=== PATIENT | male | born 1965 | race Caucasian/White ===

== ENCOUNTER 2017-11-21 07:29 | Day surgery (SDC) | payer OTHER ==
[2017-11-21] VITALS (8 sets, daily range): BP systolic 101–107; BP diastolic 61–86
[~2017-11-21] VITALS: Ht 180.3 cm; Wt 95.3 kg
--- NOTE | 2017-11-21 06:56 | Pre-Procedure Note/Attestation ---
Pre-Procedure Note/Attestation Complete Prior to Procedure Planned Procedure: left Procedure Narrative: left shoulder scope, sad, mini tom, rtc repair Indications for Procedure Pre-Operative Diagnosis: left shoulder rtc tear Attestation I attest that I discussed the nature of the procedure; its benefits; risks and complications; and alternatives (and the risks and benefits of such alternatives ), prior to the procedure, with the patient (or the patient's legal pharmaceutical representative). I attest that, if there was a reasonable possibility of needing a blood transfusion, the patient (or the patient's legal pharmaceutical representative) was given the [facility] standardized written summary, pursuant to the Manav Vandemere Blood Safety Act ([place] Health and Safety Code # 1645, as amended). I attest that I re-evaluated the patient just prior to the surgery and that there has been no change in the patient's H&P, except as documented below: none Nathaniel Craft MD Nov 21, 2017 06:56
[~2017-11-21 07:29] MED LIST: ceFAZolin 1gm in D5W 55ml IVP ONE; celeBREX 200mg Cap **SURGERY PATIENTS ONLY ORAL ONE; oxyCONTIN 20mg tab ORAL ONE
--- NOTE | 2017-11-21 08:57 | Anethesia Preoperative Eval ---
Anesthesia Pre-op PMH/ROS General Date of Evaluation: Nov 21, 2017 Anesthesiologist: Korey ASA Score: ASA 3 Mallampati Score Class I : Soft palate, uvula, fauces, pillars visible Class II: Soft palate, uvula, fauces visible Class III: Soft palate, base of uvula visible Class IV: Only hard plate visible Mallampati Classification: Class II Surgeon: Venancio Diagnosis: Left shoulder derangement Surgical Procedure: Left shoulder arthroscopy Anesthesia History: none Family History: no anesthesia problems Allergies: Coded Allergies: No Known Allergies (Unverified , 11/14/17) Medications: see eMAR Past Medical History Cardiovascular: Reports: HTN; Denies: CAD, [place], valve dz, arrhythmia, other Pulmonary: Denies: asthma, COPD, [place], other Gastrointestinal/Genitourinary: Reports: GERD, other - hiatal hernia; Denies: CRI, ESRD Neurologic/Psychiatric: Reports: depression/anxiety, TIA; Denies: dementia, CVA, other Endocrine: Denies: DM, hypothyroidism, steroids, other HEENT: Denies: cataract (L), cataract (R), glaucoma, [place] (L), [place]K (R), other Hematology/Immune: Denies: anemia, DVT, bleeding disorder, other Musculoskeletal/Integumentary: Reports: DJD, other - LBP; Denies: OA, RA, DDD, edema Other: obesity PSxH Narrative: Denies Anesthesia Pre-op Phys. Exam Physician Exam Last Vital Signs Date Time Temp Pulse Resp B/P (MAP) Pulse Ox O2 Delivery O2 Flow Rate FiO2 11/21/17 08:31 Room Air 11/21/17 08:30 98.2 65 18 104/86 (92) 96 98.2 Constitutional: NAD Cardiovascular: RRR Respiratory: CTA Airway Exam Mallampati Score: Class II MO: full ROM: full Teeth: intact Anesthesia Pre-op A/P Labs see chart Studies Pre-op Studies: EKG - sr Risk Assessment & Plan Assessment: ASA III Plan: GA Status Change Before Surgery: No Pre-Antibiotics Drug: TBD Dyan Johnson MD Nov 21, 2017 08:57
[2017-11-21] MEDS ORDERED: TYLENOL EXTRA500 MG ORAL (09:09)
[2017-11-21] MEDS ORDERED: celeBREX 200mg Cap **SURGERY PATIENTS ONLY ORAL ONE (09:26)
[2017-11-21] MEDS ORDERED: oxyCONTIN 20mg tab ORAL ONE (09:26)
[2017-11-21] MEDS ORDERED: Propofol 200mg/20ml IV ONE ×2 (10:29→11:19)
[2017-11-21] MEDS ORDERED: fentaNYL 100 mcg/2 mL IV ONE (10:29)
[2017-11-21] MEDS ORDERED: Midazolam 2mg/2ml Inj ONE ×2 (10:29→10:48)
[2017-11-21] MEDS ORDERED: Lidocaine 1% MPF 10mg/ml 5ml ONE (10:29)
[2017-11-21] MEDS ORDERED: Ropivacaine 5mg/ml Vial 30ml INJ ONE (10:31)
[2017-11-21] MEDS ORDERED: NS Irrig 4000ml IRRIG ONE (11:00)
[2017-11-21] MEDS ORDERED: LR 1000ml ONE (11:00)
[2017-11-21] MEDS ORDERED: Ketorolac 30mg Inj ONE (11:19)
[2017-11-21] MEDS ORDERED: Dexamethasone 4mg/ml vial ONE (11:19)
[2017-11-21] MEDS ORDERED: LR 1000ml 1,000 ML IVLG SCH (11:27)
[2017-11-21] MEDS ORDERED: fentaNYL 100 mcg/2 mL IV PRN (11:30)
[2017-11-21] MEDS ORDERED: Labetalol 5mg/ml 20ml vial IV PRN (11:30)
[2017-11-21] MEDS ORDERED: DiphenhydrAMINE 50mg/ml Inj IVP PRN (11:30)
[2017-11-21] MEDS ORDERED: Ketorolac 30mg Inj IV PRN (11:30)
[2017-11-21] MEDS ORDERED: Midazolam 2mg/2ml Inj IVP PRN (11:30)
[2017-11-21] MEDS ORDERED: Metoclopramide 10mg/2ml Inj IVP PRN (11:30)
[2017-11-21] MEDS ORDERED: Hydromorphone 0.5mg/0.5ml inj IVP PRN (11:30)
[2017-11-21] MEDS ORDERED: LORazepam Inj 2mg/ml 1ml IV PRN (11:30)
[2017-11-21] MEDS ORDERED: HYDROmorphone 1mg/ml Carpuject SUBQ PRN (12:15)
[2017-11-21] MEDS ORDERED: D5 1/2NS 1,000 ML IV SCH (12:15)
[2017-11-21] MEDS ORDERED: Norco 5mg/325mg tab ORAL PRN (12:15)
[2017-11-21] MEDS ORDERED: Tylenol #3 tab (300mg/30mg) ORAL PRN (12:15)
--- NOTE | 2017-11-21 12:52 | Brief Operative Note ---
Immediate Post Operative Note Operative Note Chief Complaint: left shoulder pain Pre-op Diagnosis: left shoulder impingement Procedure: left shoulder scope, clint cochran Post-op Diagnosis: same as pre-op Findings: consistent w/pre-op dx studies Surgeon: md arelis Provider Relations Specialist: macy woodard Anesthesiologist: md benigno Anesthesia: general, regional Specimen: none Complications: none Condition: stable Fluids: ns Estimated Blood Loss: minimal Drains: none Implant(s) used?: No Noemi Woodard Nov 21, 2017 12:52
--- NOTE | 2017-11-21 13:03 | Immediate Post-Op Evaluation ---
Immediate Post-Op Evalulation Immediate Post-Op Evalulation Procedure: Left shoulder arthroscopy Date of Evaluation: Nov 21, 2017 Time of Evaluation: 13:03 IV Fluids: 800 Blood Products: 0 Estimated Blood Loss: min Urinary Output: 0 Blood Pressure Systolic: 102 Blood Pressure Diastolic: 61 Pulse Rate: 59 Respiratory Rate: 16 O2 Sat by Pulse Oximetry: 95 Temperature (Fahrenheit): 97.3 Pain Score (1-10): 0 Nausea: No Vomiting: No Complications 0 Patient Status: awake, reacts, patent, none Hydration Status: adequate Drug: Ancef 2g Given Within 1 Hr of Incision: Yes Time Given: 11:15 Dyan Johnson MD Nov 21, 2017 13:03
--- NOTE | 2017-11-21 13:03 | 48 Hour Post Anesthesia Eval ---
Post Anesthesia Evaluation Procedure: Left shoulder arthroscopy Date of Evaluation: Nov 21, 2017 Airway: patent Nausea: No Vomiting: No Pain Intensity: 0 Hydration Status: adequate Cardiopulmonary Status: at baseline Mental Status/LOC: patient returned to baseline Post-Anesthesia Complications: 0 Follow-up care needed: ready to discharge Dyan Johnson MD Nov 21, 2017 13:03
--- NOTE | 2017-11-22 01:00 | Operative Note - Dictated ---
DATE OF OPERATION: 11/21/2017 PREOPERATIVE DIAGNOSES: 1. Left shoulder possible rotator cuff tear. 2. Left shoulder impingement. 3. Intractable left shoulder pain. POSTOPERATIVE DIAGNOSES: 1. Left shoulder superior labral tearing without detachment from glenoid. 2. Left shoulder subacromial bursitis. 3. Left shoulder loose fragment with acromion consistent with unstable os acromiale in the subacromial space. 4. Left shoulder bursal-sided rotator cuff involving 20% of rotator cuff. PROCEDURE: 1. Left shoulder arthroscopy and extensive intra-articular shaving. 2. Left shoulder debridement and repair of the superior biceps tendon and superior labrum. 3. Left shoulder subacromial bursoscopy, bursectomy, and subacromial decompression. 4. Resection of unstable os acromiale with removal of 5 x 5 mm loose osseous fragment. 5. Left shoulder debridement of bursal-sided rotator cuff tear involving 20% of the rotator cuff without the need for repair. SURGEON: Nathaniel Craft M.D. TOOL DESIGNER: Noemi Lindo PA-C. Stem Threshing Machine Operator was present during the actual operative portion of the case and was important and essential part of the operation. During the operation, the certified nursing assistant instructor held and operated the arthroscopic camera for visualization, assisted by manipulating the arm to help with visualization, and helped with essential parts of the repair process as necessary such as operating surgical instruments under surgeon supervision, suture management, and wound closures. ANESTHESIOLOGIST: Fritz Nair MD ANESTHESIA: LMA anesthesia combined with interscalene block for postoperative pain management. EBL: Minimal. COMPLICATIONS: None. SURGICAL INDICATION: Patient is a 52-year-old male who sustained the above injury to his shoulder. The patient was treated non-operative initially, but this did not alleviate the patients symptoms. Therefore, after discussing all non-surgical and surgical options, and discussing all foreseeable risk and benefits of surgery, the patient opted for surgical treatment as described above. PATIENT POSITIONING: Patient was brought to the operating room table and was placed on the operating room table. All pressure points were well padded. General anesthesia was induced and patient was then placed in the lateral decubitus position. All pressure points were well padded again and an axillary roll was placed. Patient shoulder was then prepped and draped in the usual sterile fashion. Time out was performed and the appropriate preoperative antibiotic was given by the anesthesiologist. EXAMINATION OF SHOULDER UNDER ANESTHESIA: The shoulder was examined under anesthesia with all muscles well relaxed. The shoulder was forward flexed, abducted and was placed through full range of external and internal rotation. The anterior, posterior, and inferior stability of the shoulder was checked. The exam revealed no evidence of adhesive capsulitis and no evidence of instability. PORTAL PLACEMENT: The posterior portal was established 2cm inferior and 1cm medial to the edge of the posterior acromion. 1 cm skin incision was made using an eleven blade and using the blunt obturator, the cannula was gently placed through the capsule. The midglenoid portal was established just lateral to the coracoid process under direct visualization. Direction of the cannula was first established using a spinal needle, and subsequently, the cannula was placed through the capsule with a blunt obturator. DIAGNOSTIC ARTHROSCOPY: The biceps tendon was probed and pulled through the joint for visualization. It appeared normal. The biceps anchor was palpated with a probe and was visualized. There was evidence of a superior labral tearing from anterior and posteriorly extending into the base of the biceps tendon. This was consistent with a variation of type 3 flap tear. There was no bucket-handle tear, although there is tear extended from the labrum up into the base of the biceps tendon. The posterior labrum and axillary recess was visualized. This was normal and there was no evidence of loose cartilage or fragments in this area. The glenoid articular surface was visualized and it appeared normal. The articular surface of the rotator cuff was visualized and probed next. There was no evidence of articular sided rotator cuff tear extending from the supraspinatus back to the posterior cuff. The Humeral head articular surface was then visualized. There was no evidence of articular cartilage damage. Next the anterior labrum, middle gleno-humeral ligament, subscapularis tendon, and the anterior inferior gleno-humeral ligament were evaluated. These structures were completely normal. At this point, the scope was moved to the midglenoid portal and the posterior structures including the posterior labrum, posterior capsule and posterior cuff were visualized. These structures were completely normal. The subscapularis recess was devoid of any loose bodies and the anterior capsule was well attached to the humeral neck. The middle and anterior inferior glenohumeral ligament was visualized. These structures were completely normal. OPERATIVE DEBRIDEMENTS AND REPAIR: Care was given to all partial thickness tears and frayed structures in the shoulder joint. The frayed rotator cuff and labrum was debrided using a shaver initially through the anterior portal and subsequently through the posterior portal to complete the debridement. This allowed for smooth debridement of all affected structures and all loose fragments were removed. DIAGNOSTIC BURSASCOPY AND SUBACROMIAL DECOMPRESSION: The subacromion bursa was entered from the posterior portal. The anterior portal was established under the CA ligament using a switching stick. Subacromial arthroscopy was initiated. There was extensive bursitis and thickened and inflamed bursa tissue present. The CA ligament appeared to be scuffed and frayed. The shaver was placed through the anterior cannula and debridement of the hypertrophic bursa tissue was accomplished. Once visualization was adequate, a lateral portal was established using a blunt trochar in the mid portion of the acromion bone in the anterior-posterior direction and approximately 2 cm lateral to the lateral edge of the acromion. Using combination of shaver and electorcautery the CA ligament was released from the undersurface of the acromion and a complete bursectomy was accomplished. At this point, a subacromial decompression was performed using a jonny initially taking off 5-8 mm of the anterolateral edge of the acromion from the lateral portal and viewing from the posterior portal. Then the lateral border of the undersurface of the acromion was decompressed to the same dept as the anterolateral edge. A posterior trough was then created in the acromion in line with the posterior edge of the clavicle. At this point, the scope was placed in the lateral portal and the subacromial decompression was performed from the posterior portal decompressing the undersurface of the acromion to dept of 5-8 mm. The decompression was performed anterior to the previously marked trough all the way medially to the level of the AC joint. At all times, care was given not to take off too much bone in order to avoid risk of fracture of the acromion. An excellent subacromial decompression was performed in this fashion. At this point, the bursal side of the rotator cuff was examined. All the bursa over the rotator cuff was removed and the rotator cuff was examined with a probe. The arm was placed into external rotation, neutral, and then internal rotation and there was no evidence of bursa rotator cuff measuring 20% rotator cuff of the supraspinatus at its attachment site. There was no full thickness rotator cuff tear could be appreciated. The scope was then placed in the posterior portal and the subacromial decompression was rechecked to assure there is no area of bone spur that would be still impinging onto the rotator cuff. EVALUATION OF DISTAL CLAVICLE AND DISTAL CLAVICLE RESECTION: Care was given to the distal end of the clavicle. Using electrocautery and alberta, the distal end of the bursa and soft tissue around the distal end of the clavicle was debrided and cleaned. Care was given not to inflict excessive trauma to the ligaments of the AC joint. The distal end of the clavicle appeared to have an inferior osteophyte extending down well bellow the level of the acromion at the level of the AC joint. This appeared to be impinging onto the supraspinatous muscle belly and the musculotendenous junction of the rotator cuff. A mini-tom procedure was performed by using a jonny to resect the inferior 30% of the distal end of the clavicle. This decompression allowed space for the inferior structures to slide without impingment. This co-plained the inferior edge of the distal clavicle with the inferior edge of the acromion. At this point, the anterior acromion was visualized. The anterior acromion had unstable piece of bony fragment consistent with os acromiale that was unstable. This was dissected off and was resected using a grasper. At this point, care was given to the bursal-sided of rotator cuff tear. This was about 20% of the rotator cuff. Using a shaver, this was debrided to a stable zone and smoothed out. The tear did not extend all the way to the articular surface and therefore a suture anchor repair was not necessary. CONDITION AT DISCHARGE FROM OPERATING ROOM: The skin was re-approximated and sterile dressing and sling were applied. All lap counts and instrument counts were correct. Patient tolerated the procedure well without complications and was taken to the recovery room in stable conditions. Nathaniel Craft M.D. DR: Jorge JOB#: [id number] CC: PAMELA
== END 2017-11-21 14:35 | disposition home or self-care (01) ==
LOC: SUR 07:29
DX: S43.432A Superior glenoid labrum lesion of left shoulder, initial encounter (principal); M75.52 Bursitis of left shoulder; M24.012 Loose body in left shoulder; M75.112 Incomplete rotator cuff tear or rupture of left shoulder, not specified as traumatic; I10 Essential (primary) hypertension; K21.9 Gastro-esophageal reflux disease without esophagitis; K44.9 Diaphragmatic hernia without obstruction or gangrene; F32.9 Major depressive disorder, single episode, unspecified; F41.9 Anxiety disorder, unspecified; M19.90 Unspecified osteoarthritis, unspecified site; E66.9 Obesity, unspecified; Z86.73 Personal history of transient ischemic attack (TIA), and cerebral infarction without residual deficits; G47.00 Insomnia, unspecified
CPT/HCPCS: 29823; 29824; 29826; J0690; J1100; J1885; J2250; J2405; J2704; J2795; J3010; 94003; 94150